=== PATIENT | female | born 1995 | race Caucasian/White ===

== ENCOUNTER 2020-06-11 17:45 | Outpatient (CLI) | payer BC ==
[~2020-06-11 17:45] MED LIST: IBUP-1984 PO; NO HOME MEDS; ONDA4TAB6 PO
[2020-06-11 18:05] LABS: CLARITY,URINE CLEAR (Clear); COLOR,URINE YELLOW (Yellow); GLUCOSE, URINE NEGATIVE (Neg); KETONES,URINE >=80 mg/dl (Neg); LEUKOCYTE ESTERASE ,URINE NEGATIVE (Neg); NITRITES, URINE NEGATIVE (Neg); OCCULT BLOOD,URINE SMALL (Neg); PROTEIN,URINE NEGATIVE (Neg); UROBILINOGEN,URINE 0.2 E.U/dL (0.2-1.0)
[2020-06-11 18:13] LABS: UA COLLECTION TYPE CLN CATCH MIDSTREAM
[2020-06-11 18:14] LABS: BASOPHILS # (AUTO) 0.1 X10'3 (0-0.2); BASOPHILS % (AUTO) 0.7 % (0-1); EOSINOPHILS # (AUTO) 0.1 X10'3 (0-0.9); EOSINOPHILS % (AUTO) 1.4 % (0-6); HEMATOCRIT 42.2 % (35.0-45.0); HEMOGLOBIN 14.3 g/dl (12.0-16.0); LYMPHOCYTES # (AUTO) 2.8 X10'3 (1.1-4.8); LYMPHOCYTES % (AUTO) 29.2 % (21-51); MEAN CORPUSCULAR HEMOGLOBIN 28.9 PG (27.0-31.0); MEAN CORPUSCULAR HGB CONC 33.8 g/dL (33.0-36.5); MEAN CORPUSCULAR VOLUME 85.4 FL (78-98); MEAN PLATELET VOLUME 9.6 FL (7.4-10.4); MONOCYTES # (AUTO) 0.7 X10'3 (0-0.9); MONOCYTES % (AUTO) 7.3 % (2-12); NEUTROPHILS # (AUTO) 5.9 X10'3 (1.8-7.7); NEUTROPHILS % (AUTO) 61.4 % (42-75); PLATELET COUNT 309 X10'3 (140-440); RED BLOOD COUNT 4.94 X10'6 (4.20-5.60); RED CELL DISTRIBUTION WIDTH 13.6 % (11.5-14.5); WHITE BLOOD COUNT 9.6 X10'3 (4.5-11.0)
[2020-06-11 18:15] LABS: BACTERIA,URINE 1+ /HPF (Neg); RBC,URINE 0-2 /HPF (0-2); WBC,URINE 0-4 /HPF (0-4)
[2020-06-11 18:16] LABS: MUCUS STRANDS MANY /LPF (Neg); SQUAMOUS EPITHELIAL CELL,UR MANY /LPF (FEW)
[2020-06-11 18:32] LABS: ALANINE AMINOTRANSFERASE 19 U/L (12-78); ALBUMIN 4.7 G/DL (3.4-5.0); ALBUMIN/GLOBULIN RATIO 1.3 (1.1-1.5); ALKALINE PHOSPHATASE 88 IU/L (46-116); ANION GAP 12 (8-16); ASPARTATE AMINO TRANSFERASE 20 U/L (10-37); BILIRUBIN,TOTAL 0.3 MG/DL (0.1-1.0); BLOOD UREA NITROGEN 10 MG/DL (7-18); CALCIUM 9.1 MG/DL (8.5-10.1); CHLORIDE 104 MMOL/L (99-107); CHOL/HDL RATIO 3.2 (0.00-4.99); CHOLESTEROL 157 MG/DL (0-200); CREATININE 0.77 MG/DL (0.40-0.90); GLUCOSE 82 MG/DL (70-104); HDL CHOLESTEROL 49 MG/DL (35-60); LDL CHOLESTEROL 95 MG/DL (50-100); POTASSIUM 3.8 MMOL/L (3.5-5.1); SODIUM 141 MMOL/L (135-145); TOTAL CARBON DIOXIDE 25.4 MMOL/L (24-32); TOTAL PROTEIN 8.2 G/DL (6.4-8.2); TRIGLYCERIDES 70 MG/DL (20-135); eGFR > 90 ML/MIN
== END 2020-06-11 23:59 | disposition home or self-care (01) ==
LOC: LAB 17:45
DX: Z00.00 Encounter for general adult medical examination without abnormal findings (principal)
CPT/HCPCS: 36415; 80053; 80061; 81001; 84439; 84443; 85025

== ENCOUNTER 2021-01-28 14:34 | Outpatient (CLI) | payer BC | END 2021-01-28 23:59 | disposition home or self-care (01) | LOC: RAD 14:34 | PROVIDERS: ATTEND Family Medicine | DX: S86.312A Strain of muscle(s) and tendon(s) of peroneal muscle group at lower leg level, left leg, initial encounter (principal); M65.872 Other synovitis and tenosynovitis, left ankle and foot; M25.472 Effusion, left ankle; X58.XXXA Exposure to other specified factors, initial encounter; Y93.89 Activity, other specified; Y92.89 Other specified places as the place of occurrence of the external cause; Y99.8 Other external cause status | CPT/HCPCS: 73721 ==

== ENCOUNTER 2021-04-04 05:47 | Day surgery (SDC) | payer BC ==
[2021-03-28 15:13] LABS: CLARITY,URINE SLIGHTLY CLOUDY (Clear); COLOR,URINE YELLOW (Yellow); GLUCOSE, URINE NEGATIVE (Neg); KETONES,URINE NEGATIVE (Neg); LEUKOCYTE ESTERASE ,URINE NEGATIVE (Neg); NITRITES, URINE NEGATIVE (Neg); OCCULT BLOOD,URINE NEGATIVE (Neg); PROTEIN,URINE NEGATIVE (Neg); UROBILINOGEN,URINE 0.2 E.U/dL (0.2-1.0)
[2021-03-28 15:18] LABS: UA COLLECTION TYPE CLN CATCH MIDSTREAM
[2021-03-28 15:18] LABS: BASOPHILS # (AUTO) 0.1 X10'3 (0-0.2); BASOPHILS % (AUTO) 0.8 % (0-1); EOSINOPHILS # (AUTO) 0.1 X10'3 (0-0.9); EOSINOPHILS % (AUTO) 1.1 % (0-6); LYMPHOCYTES # (AUTO) 3.3 X10'3 (1.1-4.8); LYMPHOCYTES % (AUTO) 34.2 % (21-51); MEAN CORPUSCULAR HEMOGLOBIN 28.4 PG (27.0-31.0); MEAN CORPUSCULAR HGB CONC 33.1 g/dL (33.0-36.5); MONOCYTES # (AUTO) 0.8 X10'3 (0-0.9); MONOCYTES % (AUTO) 8.3 % (2-12); NEUTROPHILS # (AUTO) 5.3 X10'3 (1.8-7.7); NEUTROPHILS % (AUTO) 55.6 % (42-75); PRE OP HEMATOCRIT 39.8 % (35.0-45.0); PRE OP HEMOGLOBIN 13.2 g/dL (12.0-16.0); PRE OP PLATELET COUNT 327 X10'3 (140-440); RED BLOOD COUNT 4.63 X10'6 (4.20-5.60); RED CELL DISTRIBUTION WIDTH 13.6 % (11.5-14.5)
[2021-03-28 15:19] LABS: HCG SERUM QL NEGATIVE
[2021-03-28 15:21] LABS: BACTERIA,URINE 2+ /HPF (Neg); MUCUS STRANDS MODERATE /LPF (Neg); RBC,URINE 0-2 /HPF (0-2); SQUAMOUS EPITHELIAL CELL,UR MANY /LPF (FEW); WBC,URINE 0-4 /HPF (0-4)
[2021-03-28 15:30] LABS: ALBUMIN 4.2 G/DL (3.4-5.0); ALBUMIN/GLOBULIN RATIO 1.3 (1.1-1.5); ALKALINE PHOSPHATASE 93 IU/L (46-116); BLOOD UREA NITROGEN 11 MG/DL (7-18); BUN/CREATININE RATIO 13.3 (6.6-38.0); CALCIUM 9.2 MG/DL (8.5-10.1); CHLORIDE 106 MMOL/L (99-107); CREATININE 0.83 MG/DL (0.40-0.90); PRE OP ALT 26 U/L (30-65); PRE OP ANION GAP 9 (8-16); PRE OP AST 14 U/L (10-37); PRE OP BILIRUB, TOTAL 0.3 MG/DL (0.0-1.0); PRE OP GLUCOSE 95 MG/DL (70-104); PRE OP POTASSIUM 4.1 MMOL/L (3.4-5.1); PRE OP SODIUM 140 MMOL/L (135-145); TOTAL CARBON DIOXIDE 25.3 MMOL/L (24-32); TOTAL PROTEIN 7.5 G/DL (6.4-8.2); eGFR 83 ML/MIN
[~2021-04-04] VITALS: Ht 170.2 cm; Wt 87.3 kg
[2021-04-04] VITALS (8 sets, daily range): BP systolic 118–133; BP diastolic 65–79
[~2021-04-04 05:47] MED LIST changes: +cefazolin/dext.iso 2gm/50ml IV ONE; +famotidine 20mg tablet PO ONE; +ringers solution, lacted 1,000 ML IV SCH
[2021-04-04] MEDS ORDERED: bacitracin 15gm ointment TP ONE (07:04)
[2021-04-04] MEDS ORDERED: BUPIVAcaine 0.5% inj/PF 30 ML ONE ×2 (07:04→08:58)
[2021-04-04] MEDS ORDERED: sevoflurane 250ml liquid IH ONE (07:20)
[2021-04-04] MEDS ORDERED: MIDAZolam 1 MG/ML 5ML VIAL ONE (07:23)
[2021-04-04] MEDS ORDERED: fentaNYL/PF 50MCG/1 ML 2ML syringe ONE (07:23)
[2021-04-04] MEDS ORDERED: LIDOcaine 2% (20mg/ml) 5ml vial ONE (07:26)
[2021-04-04] MEDS ORDERED: propofol inj 20 ML IV ONE (07:26)
[2021-04-04] MEDS ORDERED: ROPIVAcaine 0.5% (5mg/ml) 30ml vial ONE (08:13)
[2021-04-04] MEDS ORDERED: BUPIVAcaine/PF 7.5mg/ml (0.75%) 10ml vial ONE (08:13)
[2021-04-04] MEDS ORDERED: dexamethasone sod phosphate 4mg/ml inj. ONE (08:13)
[2021-04-04] MEDS ORDERED: ondansetron/PF 4mg/2ml inj ONE (08:13)
[2021-04-04] MEDS ORDERED: meperidine/PF 25mg/ml syringe IV PRN ×3 (08:35)
[2021-04-04] MEDS ORDERED: morphine 4 MG/ML inj SYRINge IV PRN (08:35)
[2021-04-04] MEDS ORDERED: ROPIVAcaine 0.2%/PF PUMP/bolus 545 ML POPLITEAL SCH (08:35)
[2021-04-04] MEDS ORDERED: morphine 2 MG/ML inj. syringe IV PRN (08:35)
[2021-04-04] MEDS ORDERED: ondansetron/PF 4mg/2ml inj IV PRN (08:35)
[2021-04-04] MEDS ORDERED: proCHLORperazine 10 MG/2 ml inj IV PRN (08:35)
[2021-04-04] MEDS ORDERED: ROPIVAcaine 0.2% (10 MG/5 ML) BOLUS INJECTION POPLITEAL PRN (08:35)
[2021-04-04] MEDS ORDERED: ringers solution, lacted 1,000 ML IV SCH (08:35)
[2021-04-04] MEDS ORDERED: meperidine/PF 25mg/ml syringe ONE (11:23)
--- NOTE | 2021-04-04 11:45 | NUR ---
Received from OR via BED, accompanied by Anesthesiologist and report given by Anesthesiologist. PATIENT WAKING UP, NO S/S OF PAIN, V/S WNL, SCD ON, 20G TO LUE, LEFT FOOT SPLINT CDI
--- NOTE | 2021-04-04 12:45 | NUR ---
PATIENT A&OX4, STATES GOOD CONTROL OF PAIN, V/S WNL, SCD OFF, 20G TO SURINDERE D/C, LEFT FOOT SPLINT CDI. I HAVE REVIEWED USE OF ON Q BALL AND HOW TO D/C AND GAVE INSTRUCTION PACKET FOR THESE TO PATIENT. I HAVE ALSO REVIEWED D/C INSTRUCTIONS WITH PATIENT AND SHE HAS VERBALIZED UNDERSTANDING. PATIENT D/C HOME WITH ALL BELONGINGS AND FRIEND GAVE TRANSPORT HOME
== END 2021-04-04 12:45 | disposition home or self-care (01) ==
LOC: PAS 05:47
PROVIDERS: ATTEND Podiatrist Foot & Ankle Surgery
DX: M21.172 Varus deformity, not elsewhere classified, left ankle (principal); M21.6X2 Other acquired deformities of left foot; M19.072 Primary osteoarthritis, left ankle and foot; M25.375 Other instability, left foot; G89.18 Other acute postprocedural pain; Z79.899 Other long term (current) drug therapy; Z79.82 Long term (current) use of aspirin; Z91.040 Latex allergy status; Z91.09 Other allergy status, other than to drugs and biological substances; Z98.890 Other specified postprocedural states; Z88.8 Allergy status to other drugs, medicaments and biological substances; Z20.822 Contact with and (suspected) exposure to COVID-19
CPT/HCPCS: 20900; 27687; 27691; 28715; 36415; 64446; 64447; 73600; 76000; 76942; 80053; 81001; 82948; 84703; 85025; A6223; C1713; C1734; J0690; J1100; J2175; J2250; J2405; J2704; J2795; J3010; J3490; J7030; J7120; S0020; U0003; U0005; Z7506; Z7508; Z7512; A4618; A6253; A6449; A7000; C1769

== ENCOUNTER 2022-05-29 20:28 | Outpatient (CLI) | payer BC ==
[~2022-05-29 20:28] MED LIST changes: -cefazolin/dext.iso 2gm/50ml IV ONE; -famotidine 20mg tablet PO ONE; -ringers solution, lacted 1,000 ML IV SCH
[2022-05-29 21:01] LABS: ALANINE AMINOTRANSFERASE 27 U/L (12-78); ALBUMIN 4.3 G/DL (3.4-5.0); ALBUMIN/GLOBULIN RATIO 1.2 (1.1-1.5); ALKALINE PHOSPHATASE 87 IU/L (46-116); ANION GAP 8 (8-16); ASPARTATE AMINO TRANSFERASE 14 U/L (10-37); BILIRUBIN,TOTAL 0.2 MG/DL (0.1-1.0); BLOOD UREA NITROGEN 15 MG/DL (7-18); CHLORIDE 105 MMOL/L (99-107); CREATININE 0.88 MG/DL (0.40-0.90); GLUCOSE 92 MG/DL (70-104); POTASSIUM 3.8 MMOL/L (3.5-5.1); SODIUM 141 MMOL/L (135-145); TOTAL CARBON DIOXIDE 28.2 MMOL/L (24-32); TOTAL PROTEIN 7.9 G/DL (6.4-8.2); eGFR 77 ML/MIN
[2022-05-29 21:09] LABS: MAGNESIUM 2.1 MG/DL (1.5-2.4)
== END 2022-05-29 23:59 | disposition home or self-care (01) ==
LOC: LAB 20:28
PROVIDERS: ATTEND Internal Medicine Interventional Cardiology
DX: G90.A Postural orthostatic tachycardia syndrome [POTS] (principal); I20.8 Other forms of angina pectoris
CPT/HCPCS: 36415; 80053; 83735; 84443

== ENCOUNTER 2022-07-28 12:59 | Outpatient (CLI) | payer BC | END 2022-07-28 23:59 | disposition home or self-care (01) | LOC: CARD DIAG 12:59 | PROVIDERS: ATTEND Internal Medicine Interventional Cardiology | DX: G90.A Postural orthostatic tachycardia syndrome [POTS] (principal); R42 Dizziness and giddiness; R20.0 Anesthesia of skin | CPT/HCPCS: 93660 ==